=== PATIENT | male | born 1935 | race Caucasian/White ===

== ENCOUNTER 2023-06-10 11:35 | Emergency (ER) | payer MEDICARE, MEDICAID | END 2023-06-10 15:47 | LOC: CSHERS 11:35 | DX: S09.90XA Unspecified injury of head, initial encounter (principal); S70.01XA Contusion of right hip, initial encounter; F17.220 Nicotine dependence, chewing tobacco, uncomplicated; I10 Essential (primary) hypertension; W19.XXXA Unspecified fall, initial encounter | CPT/HCPCS: 70450 ==